=== PATIENT | female | born 1960 | race Hispanic/Latino ===

== ENCOUNTER 2022-10-12 11:38 | Outpatient (CLI) | payer BC | END 2022-10-12 11:39 | disposition home or self-care (01) | LOC: CSHRAD 11:38 | PROVIDERS: ATTEND Nurse Practitioner Adult Health | DX: M79.644 Pain in right finger(s) (principal) ==

== ENCOUNTER 2023-07-06 11:49 | Outpatient (CLI) | payer BC | END 2023-07-06 11:50 | disposition home or self-care (01) | LOC: CSHMAMMO 11:49 | PROVIDERS: ATTEND Obstetrics & Gynecology | DX: Z12.31 Encounter for screening mammogram for malignant neoplasm of breast (principal) | CPT/HCPCS: 77063; 77067 ==

== ENCOUNTER 2023-08-04 14:00 | Outpatient (CLI) | payer BC | END 2023-08-04 14:01 | disposition home or self-care (01) | LOC: CSHULT 14:00 | PROVIDERS: ATTEND Internal Medicine | DX: E01.0 Iodine-deficiency related diffuse (endemic) goiter (principal) | CPT/HCPCS: 76536 ==

== ENCOUNTER 2024-06-26 15:01 | Outpatient (CLI) | payer BC | END 2024-06-26 15:02 | disposition home or self-care (01) | LOC: CSHULT 15:01 | PROVIDERS: ATTEND Family Medicine | DX: R31.1 Benign essential microscopic hematuria (principal); N28.9 Disorder of kidney and ureter, unspecified | CPT/HCPCS: 76770 ==

== ENCOUNTER 2024-07-04 07:11 | Outpatient (CLI) | payer BC ==
[2024-07-04] MEDS ORDERED: Iopamidol 300 61% 100 ML VIAL FS ONE (08:57)
== END 2024-07-04 07:12 | disposition home or self-care (01) ==
LOC: CSHCT 07:11
PROVIDERS: ATTEND Internal Medicine
DX: R93.422 Abnormal radiologic findings on diagnostic imaging of left kidney (principal); R30.0 Dysuria; N28.89 Other specified disorders of kidney and ureter
CPT/HCPCS: 36415; 74170; 82565